=== PATIENT | female | born 1960 | race Asian ===

== ENCOUNTER 2018-03-01 19:20 | Emergency (ER) | payer OTHER, SELFPAY ==
[2018-03-01 19:21] VITALS: BP 143/86; PULSE 86; RESP 16; TEMP 35.8; O2SAT 99; BMI 22.3
[2018-03-01] MEDS: Lidocaine/Epi/Tetracaine 50 ML 1 APPLIC TOPICAL (20:19)
--- NOTE | 2018-03-01 21:14 | DCINST.ED_ITS ---
ED Disposition - Plan for ED Patient: Chief Complaint: Laceration Instructions: ED Laceration Hand Referrals: Shaunna Valdez MD [Primary Care Provider] - [facility] [GROUP OF PHYSICIANS] -
--- NOTE | 2018-03-01 21:18 | ED.DCSUM_ITS ---
- ER Visit Summary Date of Service: 03/01/18 Chief Complaint: Left hand laceration History of Present Illness: The patient is a 58 F presenting with left hand laceration. This occurred at work. She was cleaning under a coffee machine and cut her hand on a piece of metal. No other injuries. Tetanus is up-to-date. Physical Examination: Vitals are stable. Patient is afebrile. Alert no acute distress. HEENT exam is unremarkable. Lungs are clear and equal bilaterally. Heart is regular rate and rhythm. Extremities 2.5 cm laceration dorsal hand. Active full range of motion. Tendon function is intact. Normal cap refill. Skin is warm and dry. No focal neurologic deficit. Remainder of exam is unremarkable. Emergency Department Course and Treatment: LET was applied. Irrigated with saline. Anesthetized with lidocaine. 5, 5-0 simple sutures were placed. Advised wound care instructions. Advised to follow-up with [facility]. Advised return to ED if worsening complaints. Disposition: Discharge home Impression: Left hand laceration, laceration repair This note was generated with [employer] by [employer] dictation software. It may contain incorrect words, spelling, and punctuation that were not noted in review of the chart prior to signing ED Disposition - Plan for ED Patient: Chief Complaint: Laceration Instructions: ED Laceration Hand Referrals: [facility] [GROUP OF PHYSICIANS] - Shaunna Valdez MD [Primary Care Provider] -
[2018-03-01 21:30] VITALS: RESP 18
== END 2018-03-01 21:31 | disposition home or self-care (01) ==
PROVIDERS: Emergency Provider Emergency Medicine; Family Provider Family Medicine; PCP Family Medicine
DX: S61.412A Laceration without foreign body of left hand, initial encounter (principal); W26.8XXA Contact with other sharp object(s), not elsewhere classified, initial encounter; Y93.G1 Activity, food preparation and clean up; Y92.89 Other specified places as the place of occurrence of the external cause; Y99.0 Civilian activity done for income or pay; Z72.0 Tobacco use
CPT/HCPCS: 12001; 99283